=== PATIENT | female | born 1995 ===

== ENCOUNTER 2025-01-08 14:07 | Emergency (ER) | payer OTHER ==
[~2025-01-08] VITALS: Ht 152.4 cm; Wt 64.0 kg
[2025-01-08 14:10] VITALS: O2SAT 100
[2025-01-08 14:48] LABS: CLARITY URINE CLEAR (CLEAR); COLOR URINE YELLOW (YELLOW); GLUCOSE URINE NEGATIVE (NEGATIVE); KETONES URINE NEGATIVE (NEGATIVE); LEUKOCYTE ESTERASE URINE NEGATIVE (NEGATIVE); NITRITE URINE NEGATIVE (NEGATIVE); OCCULT BLOOD URINE 3+ (NEGATIVE); PH URINE 6.5 (4.5-8.0); PROTEIN URINE NEGATIVE (NEGATIVE); SPECIFIC GRAVITY URINE 1.007 (1.005-1.030); UROBILINOGEN URINE 0.2 E.U./dL (0.2-1.0)
[2025-01-08 14:56] LABS: BASOPHILS % 0.3 % (0.0-2.0); EOSINOPHILS % 0.4 % (0.0-5.0); HEMATOCRIT. 39.9 % (36.0-48.0); HEMOGLOBIN. 13.4 g/dL (12.0-16.0); LYMPHOCYTES % 21.5 % (20.0-50.0); MEAN PLATELET VOLUME 8.2 fl (7.4-10.4); MONOCYTES % 6.3 % (2.0-8.0); NEUTROPHILS % 71.5 % (40.0-76.0); PLATELET 195 x1000/uL (130-400); RED BLOOD CELL COUNT 4.71 mill/uL (4.2-5.4); RED CELL DISTRIBUTION WIDTH 14.1 % (11.6-14.6)
[2025-01-08 15:06] LABS: HCG SCREEN POSITIVE
[2025-01-08 15:08] LABS: CREATININE 0.7 mg/dL (0.6-1.0); UREA NITROGEN BLOOD 11 mg/dL (9-23)
[2025-01-08 15:12] LABS: SQUAMOUS EPITHELIAL CELL URINE 1+ /lpf (RARE/1+); WBC URINE 0-2 /hpf (0-2)
[2025-01-08 15:13] LABS: BACTERIA URINE NONE SEEN
[2025-01-08 15:14] LABS: RBC URINE 0-2 /hpf (0-2)
[2025-01-08 15:28] LABS: B-HCG QUANTITATIVE 32368 mIU/mL (<6)
[2025-01-08 16:41] VITALS: BP 90/56; PULSE 71; RESP 16; TEMP 36.8; O2SAT 100
== END 2025-01-08 16:59 | disposition home or self-care (01) ==
LOC: ER 14:07
DX: O20.8 Other hemorrhage in early pregnancy (principal); Z3A.01 Less than 8 weeks gestation of pregnancy; Z79.899 Other long term (current) drug therapy
CPT/HCPCS: 80048; 81003; 81025; 84703; 84702; 85025; 86850; 86900; 86901; 36415; 76801; 76817; 99284; Z7610; A4606